=== PATIENT | male | born 2000 | race Caucasian/White ===

== ENCOUNTER 2024-11-15 20:57 | Emergency (ER) | payer OTHER ==
[~2024-11-15] VITALS: Ht 188 cm; Wt 73.0 kg
[2024-11-15 22:12] LABS: PLATELET COUNT, AUTOMATED 281 10^3/uL (150-450)
[2024-11-15] MEDS: NICOTINE 21 MG/24 HR 1 EA TRANSDERMAL TD ONE (22:25)
[2024-11-15 22:32] LABS: AMPHETAMINES LEVEL URINE NEGATIVE (NEGATIVE); BARBITURATES URINE NEGATIVE (NEGATIVE); BENZODIAZEPINES URINE NEGATIVE (NEGATIVE); COCAINE METABOLITE URINE NEGATIVE (NEGATIVE)
[2024-11-15 22:33] LABS: CANNABINOIDS URINE NEGATIVE (NEGATIVE); METHADONE URINE NEGATIVE (NEGATIVE); OPIATES URINE NEGATIVE (NEGATIVE); PHENCYCLIDINE URINE NEGATIVE (NEGATIVE)
[2024-11-15 22:36] LABS: SALICYLATE LEVEL < 3.0 MG/DL (<30)
[2024-11-15 22:41] LABS: ALT/SGPT 23 U/L (7.0-40); AST/SGOT 24 U/L (<34); CALCIUM LEVEL 9.4 MG/DL (8.5-10.1); CARBON DIOXIDE LEVEL 28 MMOL/L (20-31); CHLORIDE LEVEL 108 MMOL/L (98-107); CREATININE FOR GFR 0.94 MG/DL (0.70-1.30); GLOMERULAR FILTRATION RATE > 90.0 (>60); POTASSIUM SERUM 3.9 MMOL/L (3.5-5.1); SODIUM LEVEL 150 MMOL/L (136-145)
[2024-11-15 23:10] LABS: ETHYL ALCOHOL (ETHANOL) 0.319 % (0.000-0.010)
[2024-11-16] MEDS ORDERED: HOME MED LIST COMPLETE! XX SCH (00:30)
[2024-11-16] MEDS: ONDANSETRON 4MG TAB PO ONE (06:54)
[2024-11-16 11:03] VITALS: BP 134/80; TEMP 99.1; O2SAT 97
== END 2024-11-16 11:33 | disposition home or self-care (01) ==
LOC: EDBD 20:57 → M ED 20:57
DX: F10.129 Alcohol abuse with intoxication, unspecified (principal); F39 Unspecified mood [affective] disorder